=== PATIENT | male | born 1955 | race Caucasian/White ===

== ENCOUNTER 2019-04-29 16:24 | Emergency (ER) | payer OTHER ==
[2019-04-29] MEDS ORDERED: Acetaminophen/HYDROcodone 325-5 MG Tab PO ONE (16:25)
--- NOTE | 2019-04-29 16:51 | EDM.PDOC ---
ED HPI GENERAL MEDICAL PROBLEM - General Chief Complaint: General Stated Complaint: LT SIDE RIB PAIN Time Seen by Provider: 04/29/19 16:46 Source of Information: Reports: Patient History Limitations: Reports: No Limitations - History of Present Illness INITIAL COMMENTS - FREE TEXT/NARRATIVE: Patient complains of left rib pain x 3 days. Pain was mild, but worsened today after sneezing. The day prior to onset of symptoms he slipped on ice and landed on his buttock. Immediately after the fall, he did not experience rib pain. The rib pain is worse with any movement, and localized to left axilla. Denies chest pain or shortness of breath. Duration: Day(s): (3) Location: Reports: Chest Quality: Reports: Ache Severity: Moderate Worsens with: Reports: Movement Associated Symptoms: Reports: No Other Symptoms Thoracic Pain Score (Numeric/FACES): 10 - Related Data Allergies Allergy/AdvReac Type Severity Reaction Status Date / Time Penicillins Allergy Intermediate Rash Verified 04/29/19 16:50 Home Meds: Home Meds Escitalopram Oxalate [Lexapro] 10 mg PO DAILY 04/27/19 [History] Olmesartan/Hydrochlorothiazide [Benicar HCT 40-25 MG] 1 tab PO DAILY 04/27/19 [ History] atorvaSTATin [Lipitor] 10 mg PO BEDTIME 04/27/19 [History] Acetaminophen/HYDROcodone [[place] 325-5 MG] 1 - 2 tab PO Q6H PRN #16 tab [Rx] Past Medical History Cardiovascular History: Reports: Arrhythmia, High Cholesterol, Hypertension Musculoskeletal History: Reports: Fracture, Osteoarthritis Other Musculoskeletal History: DDD, MALLET FINGER OF LEFT HAND, ROTATOR CUFF TEAR, SI JOINT INFLAMMATION, TENDON MASS Neurological History: Reports: Headaches, Chronic Other Neuro History: INSOMNIA Psychiatric History: Reports: Anxiety - Past Surgical History Musculoskeletal Surgical History: Reports: Arthroscopic Procedure Other Musculoskeletal Surgeries/Procedures:: LUMBAR SPINAL FUSION, S/P LUMBAR DISCECTOMY, LAMINECTOMY, GANGLION EXCISION, BACK SURGERY, HAND SURGERY, KNEE SURGERY ED ROS GENERAL - Review of Systems Review Of Systems: Comprehensive ROS is negative, except as noted in HPI. ED EXAM, GENERAL - Physical Exam Exam: See Below Exam Limited By: No Limitations General Appearance: Alert, WD/WN, No Apparent Distress Throat/Mouth: No Airway Compromise Head: Atraumatic, Normocephalic Neck: Full Range of Motion Respiratory/Chest: No Respiratory Distress, Lungs Clear, Normal Breath Sounds Cardiovascular: Regular Rate, Rhythm, No Murmur GI/Abdominal: Soft, Non-Tender, No Distention Back Exam: Full Range of Motion, Other (Moderate left axillary tenderness with crepitus) Extremities: Normal Range of Motion Neurological: Alert, Normal Cognition Skin Exam: Warm, Dry, Intact Course - Vital Signs Last Recorded V/S: Last Vital Signs Temp 36.9 C 04/29/19 16:30 Pulse 60 04/29/19 16:30 Resp 18 04/29/19 16:30 BP 138/78 04/29/19 16:30 Pulse Ox 98 04/29/19 16:30 - Orders/Labs/Meds Orders: Active Orders 24 hr Category Date Time Status Ribs 2V w Chest Lt [CR] Stat Exams 04/29/19 16:45 Ordered - Radiology Interpretation Free Text/Narrative:: Left rib xray with chest: left 8th rib fracture, no pneumothorax. (ED provider interpretation) Departure - Departure Time of Disposition: 17:17 Disposition: Home, Self-Care 01 Condition: Good Clinical Impression: Closed rib fracture Qualifiers: Encounter type: initial encounter Rib fracture type: single rib Laterality: left Qualified Code(s): S22.32XA - Fracture of one rib, left side, initial encounter for closed fracture - Discharge Information *PRESCRIPTION DRUG MONITORING PROGRAM REVIEWED*: Yes *COPY OF PRESCRIPTION DRUG MONITORING REPORT IN PATIENT SCOTT: Not Applicable Prescriptions: Acetaminophen/HYDROcodone [[place] 325-5 MG] 1 - 2 tab PO Q6H PRN #16 tab PRN Reason: Pain Instructions: Rib Fracture, [id number] Referrals: Malka Choe, DEVELOPMENT [employer]ING ENGINEER [Primary Care Provider] - 3 Days Forms: ED Department Discharge Additional Instructions: Use the incentive spirometer every 2 hours while awake. Take the [place] as directed. Follow up with your primary physician in 3-4 days. Notify your surgeon of the rib fracture, he may want to delay the surgery. Sepsis Event Note - Focused Exam Vital Signs: Vital Signs Temp Pulse Resp BP Pulse Ox 04/29/19 16:30 36.9 C 60 18 138/78 98 Date Exam was Performed: 04/29/19 Time Exam was Performed: 17:16 - My Orders Last 24 Hours: My Active Orders 04/29/19 16:45 Ribs 2V w Chest Lt [CR] Stat - Assessment/Plan Last 24 Hours: My Active Orders 04/29/19 16:45 Ribs 2V w Chest Lt [CR] Stat
--- NOTE | 2019-05-01 10:20 | CR ---
INDICATION: Fell 3 to 4 days ago, pain left ribs. LEFT RIBS WITH CHEST: PA view of the chest with 3 additional views of the left ribs were obtained 04/29/19 and revealed the heart and mediastinum to be unremarkable. Degenerative changes are noted in the lower thoracic spine with hypertrophic lipping. No evidence of an active infiltrate, effusion, contusion, or pneumothorax was identified. At the 8th left rib posterolaterally there is a slightly oblique fracture with 2 to 3 mm offset at the fracture site, no significant angulation was seen. Along the medial posterior aspect of the 9th rib there also appears to be an oblique fracture with slight offset of approximately 1 to 1.5 mm. No other bony abnormality was identified in the ribs. Moderate degenerative changes noted at the left glenohumeral joint with mild degenerative changes at the AC joint. IMPRESSION: 1. Fractures of the 8th and 9th ribs with slight offset, no significant angulation, 2. Osteoarthritis mostly at the left glenohumeral joint, minimally at the AC joint on the left. MTDD
== END 2019-04-29 17:30 | disposition home or self-care (01) ==
LOC: FB.ED 16:24
DX: S22.32XA Fracture of one rib, left side, initial encounter for closed fracture (principal); E78.00 Pure hypercholesterolemia, unspecified; I10 Essential (primary) hypertension; F41.9 Anxiety disorder, unspecified; Z88.0 Allergy status to penicillin; Z79.899 Other long term (current) drug therapy; W00.0XXA Fall on same level due to ice and snow, initial encounter
CPT/HCPCS: 71101-LT; 99283-25; A9270-GY

== ENCOUNTER 2019-05-16 07:21 | Day surgery (SDC) | payer OTHER ==
[~2019-05-16 07:21] MED LIST: Lactated Ringers 1,000 ML IV SCH; Sodium Chloride 0.9% 10 ML Syringe FLUSH PRN; ceFAZolin 2 GM in Premix Bag 1 BAG IV ONE
[2019-05-16] MEDS ORDERED: Lidocaine 2% 5 ML SDV INJECT ONE (07:22)
[2019-05-16] MEDS ORDERED: Glycopyrrolate 0.2 MG/ML 5 ML MDV IV ONE (07:22)
[2019-05-16] MEDS ORDERED: Dexamethasone 4 MG/ML 5 ML MDV IVPUSH ONE (07:22)
[2019-05-16] MEDS ORDERED: Propofol 200 MG/20 ML SDV IV ONE (07:22)
[2019-05-16] MEDS ORDERED: Ketorolac 30 MG/ML SDV IVPUSH ONE (07:22)
[2019-05-16] MEDS ORDERED: fentaNYL 100 MCG/2 ML SDV IV ONE (07:22)
[2019-05-16] MEDS ORDERED: Lactated Ringers 1,000 ML IV ONE (07:22)
[2019-05-16] MEDS ORDERED: Ondansetron 4 MG/2 ML SDV IVPUSH ONE (07:22)
[2019-05-16] MEDS ORDERED: Midazolam 1 MG/ML 2 ML SDV IV ONE (07:22)
[2019-05-16] MEDS ORDERED: Bupivacaine 0.5% 30 ML SDV INJECT ONE (09:13)
[2019-05-16] MEDS ORDERED: Lidocaine 1% with EPINEPHrine 1:100,000 20 ML MDV INJECT ONE (09:13)
--- NOTE | 2019-05-16 10:04 | PCM.OPNOTE ---
- General Post-Op/Procedure Note Date of Surgery/Procedure: 05/16/19 Operative Procedure(s): rih repair with mesh Findings: Indirect hernia right without obstruction or gangrene Pre Op Diagnosis: rih Post-Op Diagnosis: Indirect hernia right without obstruction or gangrene Anesthesia Technique: General LMA, Local (7 ml 1 5 lido with epi, 0.5% buvipicaine) Primary Surgeon: Vincent Mccarthy Anesthesia Provider: Elvin Colindres Pathology: none EBL in mLs: 2 Complications: None Condition: Good Free Text/Narrative:: see dictation
[2019-05-16] MEDS ORDERED: Acetaminophen/HYDROcodone 325-5 MG Tab PO PRN (10:14)
--- NOTE | 2019-05-16 14:20 | OR ---
DATE OF OPERATION: 05/16/2019 SURGEON: Vincent Mccarthy MD PROCEDURE PERFORMED: Right inguinal hernia repair with mesh. POSTOPERATIVE DIAGNOSIS: Right inguinal hernia without obstruction or gangrene. INDICATIONS FOR PROCEDURE: This is a 64-year-old white male who was referred with a symptomatic right inguinal hernia and was offered and accepted repair. INTRAOPERATIVE FINDINGS: Indirect hernia was identified. This was repaired with a Phasix plug and patch, lot number [id number], reference number [id number], expiration date 06/02/2020. 7 mL of 1:1 mixture of 1% lidocaine with epinephrine, 0.5% bupivacaine was used during the procedure and an OptiFix absorbable fixation system was used to tack the mesh to the floor of the inguinal canal. DESCRIPTION OF OPERATION: After an excellent LMA anesthetic was administered, the patient was prepped and draped in usual sterile manner. Local was injected in the plain incision site which basically ran along the line and intercepted the inguinal ligament intermediate between the anterior-superior iliac spine and the symphysis pubis. In addition, just medial to the anterior-superior iliac spine, a skin wheal was raised and a deep intermuscular injection was carried out to numb up the genitofemoral and ilioinguinal nerve. Our incision was then carried out approximately 5 cm in the injected site and underlying subcu fat was divided using electrocautery. Superficial inferior epigastric vessels were clamped, divided, and tied with 2-0 Vicryl ties. Aponeurosis of the external oblique was exposed. More local was injected below the aponeurosis. A jsu was made in the aponeurosis and carried out through the external ring. The cord was then mobilized and controlled with a 1-inch Geraldine drain. The cord was then skeletonized, exposing the lipoma as well as an indirect hernia. Lipoma base was dissected free from the surrounding cord structures, clamped, divided, and tied with 2-0 Vicryl tie. The hernia was then reduced and an extra-large plug was inserted into the defect. This was then tacked into position on the transversalis fascia and inguinal ligament using interrupted 2-0 Vicryl ties. The overlay mesh was then cut into a keyhole pattern with a vertical line, placed on the floor of the inguinal canal and then the inferior edge of the mesh was tacked along the ilioinguinal ligament. The keyhole was used to encircle the spermatic cord and then this was closed with a running 2-0 Vicryl as well. The Optifast was then used to tack the mesh to the floor of the inguinal canal. Operative site was irrigated and after assuring excellent hemostasis, the aponeurosis was closed with a running 3-0 Vicryl. 3-0 Vicryl was used to close Alexa fascia. Running subcu 4-0 Vicryl was used to close the skin. Steri- Strips were applied. Needle, sponge, and instrument counts were reported as correct. The patient tolerated the procedure well, was taken to recovery in good condition. /[id number] /MODL
== END 2019-05-16 11:53 | disposition home or self-care (01) ==
LOC: FB.SDS 07:21
PROVIDERS: ATTEND Surgery
DX: K40.90 Unilateral inguinal hernia, without obstruction or gangrene, not specified as recurrent (principal); D17.6 Benign lipomatous neoplasm of spermatic cord; I10 Essential (primary) hypertension; E78.5 Hyperlipidemia, unspecified; F41.9 Anxiety disorder, unspecified; R19.5 Other fecal abnormalities; Z79.899 Other long term (current) drug therapy; Z88.0 Allergy status to penicillin
CPT/HCPCS: 94150; A9270-GY; C1713; C1781; J0690; J1100; J1885; J2001; J2250; J2405; J2704; J3010; J3490; J7120